=== PATIENT | female | born 2000 | race Caucasian/White ===

== ENCOUNTER 2024-01-07 00:06 | Emergency (ER) | payer MEDICAID, SELFPAY ==
[2024-01-07 00:21] VITALS: BP 129/80; PULSE 94; RESP 20; TEMP 36.5; O2SAT 98; BMI 41.0
--- NOTE | 2024-01-07 00:24 | ED_ITS ---
HPI - General Adult General Date Seen: 01/07/24 Chief complaint: Abdominal Pain Stated complaint: Abdominal pain Time Seen by Provider: 01/07/24 00:06 History of Present Illness HPI narrative: This is a 23-year-old female with a history of lactose intolerance, ADHD, depression, anemia, prior , metabolic syndrome, section elevated BMI According to records through [facility], she was seen on November 20 by her primary care provider after the patient noticed a lump under her section scar. It looks like her doctor ordered an ultrasound. EXAM: US ABDOMEN LIMITED SOFT TISSUE COMPARISON: CT abdomen and pelvis 06/06/2023. FINDINGS: Targeted grayscale and color Doppler evaluation of the area of?interest involving the midline low abdomen at site of section?scar. Adjacent to the section scar, there is nonorganized?subcutaneous fluid overall measuring approximately 1 x 7 x 6 mm. No surrounding hyperemia. No evidence of?abscess at this time. IMPRESSION: At the area of concern, adjacent to the section scar, there is a?collection of nonorganized subcutaneous fluid, not amenable to drainage at?this time. No evidence of abscess or surrounding hyperemia. Labs from 02/02/2023 showed normal kidney function, glucose 117. WBC 8.2, hemoglobin 9.2, platelet count 386. Patient reports that she has been generally healthy for the past month or so. Beginning Tuesday evening or Tuesday evening she started having some GI symptoms. She started having a ?gut ache? with discomfort mostly in her epigastrium but also throughout her intestines and more on the right than on the left. It has been present continuously since onset. It gets worse when she eats. It makes her nauseous but she has not been vomiting. She has had normal brown bowel movements. For the past week or 2 she has had occasional soft stools but not really liquidy diarrhea. No dysuria, urgency, or frequency but she notes that her stomach hurts more when she strains to urinate or strains to pass a BM. No fever or chills. Her 1-year-old child was sick couple of days ago with a fever but did not have vomiting or diarrhea. He is better now Her last menstrual cycle started December 21. 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 She does not think she is but has not done a test. Related Data Previous Rx's ?Medication ?Instructions ?Recorded omeprazole 40 mg capsule,delayed 40 mg PO DAILY #30 caps 01/07/24 release ondansetron HCl 4 mg tablet 4 mg PO Q8H PRN nausea and 01/07/24 vomiting 4 days #10 tabs Allergies Allergy/AdvReac Type Severity Reaction Status Date / Time No Known Drug Allergies Allergy Verified 01/07/24 00:21 [facility] Social History Smoking Status: Never smoker Non-prescribed substance use: denies use Exam Narrative: Exam Narrative: Constitutional: Appears well-developed and well-nourished. Alert. Conversant. Non toxic. Fiance at her bedside. He is playing a game on his phone. HENT: Head: Atraumatic. Nose: Nose normal. Mouth/Throat: Oral mucosa is clear and moist. no trismus. Pharynx normal. Tonsi ls symmetric. No tonsillar enlargement, erythema, or exudate. Eyes: Conjunctivae normal. EOM normal. Pupils equal, round, and reactive to light. No scleral icterus. Neck: Normal range of motion. Neck supple. No tracheal deviation present. Cardiovascular: Normal rate, regular rhythm. No gallop. No friction rub. No murmur heard. Symmetric radial artery pulses Pulmonary/Chest: Effort normal. No stridor. No respiratory distress. No wheezes. No rales. No rhonchi . No tenderness. Abdominal: Soft. Bowel sounds normal. No distension. No mass. Epigastric, left upper quadrant, left lower quadrant and right lower quadrant and suprapubic tenderness. Not really tender in the right upper quadrant. No Palacios sign. No rebound. No guarding. No CVA tenderness. Musculoskeletal: RUE: Normal range of motion. No tenderness. No deformity LUE: Normal range of motion. No tenderness. No deformity RLE: Normal range of motion. No edema. No tenderness. No deformity LLE: Normal range of motion. No edema. No tenderness. No deformity Neurological: Alert and oriented to person, place, and time. Normal strength. CN II-VII intact. No sensory deficit. GCS eye subscore is 4. GCS verbal subscore is 5. GCS motor subscore is 6. Normal coordination Skin: Skin is warm and dry. No rash noted. No pallor. Normal capillary refill. Psychiatric: Normal mood. Normal affect. Const: Vital Signs, click to edit/add: Vital Signs - 24 hr 01/07/24 00:21 Temperature 97.7 F Pulse Rate [Pulse Oximeter] 94 Respiratory Rate 20 Blood Pressure [Ri ght Upper Arm] 129/80 Pulse Oximetry 98 Oxygen Delivery Me thod Room Air Course Course ED Course: Recheck-nausea improved. Pain improved down to a 4/10 which is very tolerable for her. She feels comfortable going home with her fiance. Vital Signs Vital signs: Initial Vital Signs Temperature 97.7 F 01/07/24 00:21 Temperature Source Temporal Artery Scan 01/07/24 00:21 Pulse Rate 94 01/07/24 00:21 Pulse Rhythm Regular 01/07/24 00:21 Pulse Strength 3+ Normal 01/07/24 00:21 Respiratory Rate 20 01/07/24 00:21 Blood Pressure 129/80 01/07/24 00:21 Blood Pressure Mean 96 01/07/24 00:21 Pulse Oximetry 98 01/07/24 00:21 Oxygen Delivery Method Room Air 01/07/24 00:21 Vital Signs Temperature 97.7 F 01/07/24 00:21 Pulse Rate 94 01/07/24 00:21 Respiratory Rate 20 01/07/24 00:21 Blood Pressure 129/80 01/07/24 00:21 Pulse Oximetry 98 01/07/24 00:21 Oxygen Delivery Method Room Air 01/07/24 00:21 Temperature 97.7 F 01/07/24 00:21 Pulse Rate 94 01/07/24 00:21 Respiratory Rate 20 01/07/24 00:21 Blood Pressure 129/80 01/07/24 00:21 Pulse Oximetry 98 01/07/24 00:21 Oxygen Delivery Method Room Air 01/07/24 00:21 Medications Administered Medications: Discontinued Medications Generic Name Dose Route Start Last Admin Trade Name Freq PRN Reason Stop Dose Admin Ketorolac Tromethamine 15 mg 01/07/24 00:53 01/07/24 01:18 Ketorolac 15 Mg/Ml Inj IVP 01/07/24 00:54 15 mg ONCE ONE Administration Lidocaine/Aluminum/Magnesium/Simeth 30 ml 01/07/24 00:53 01/07/24 01:18 Gi Cocktail (Visc Lido/Antacid) 30 Ml PO 01/07/24 00:54 30 ml ONCE ONE Administration Ondansetron HCl 4 mg 01/07/24 00:53 01/07/24 01:18 Ondansetron 2 Mg/Ml Inj IVP 01/07/24 00:54 4 mg ONCE ONE Administration Medical Decision Making MDM Narrative Medical decision making narrative: Presented to the Emergency Department with nausea and abdominal pain ongoing for the past 4 days. Pain is predominantly epigastric but does also more generalized in her abdomen. She had reported that was more on the right than on the left but on exam she was more tender on the left than on the right. The differential diagnosis of abdominal pain includes: Appendicitis, Bowel Obstruction, Ulcer, Ischemia, Cholecystitis, Diverticulitis, Pancreatitis, UTI, kidney stone, Enteritis/Colitis, amongst many other etiologies. Laboratory testing does not reveal a cause for the patient's pain. CT imaging shows no definitive cause for her pain. Pain is predominantly epigastric and she is describing a lot of ?reflux along with her symptoms. She was improved after GI cocktail. I wonder if this might be gastritis or peptic ulcer disease. She is not having any black or bloody stools. Although she is anemic hemoglobin is stable. Blood pressure and pulse are normal. No signs of active GI bleeding requiring hospitalization. In the absence of any a immediate medical or surgical cause of pain requiring hospitalization at that she is safe for discharge home, especially since symptoms are much improved after meds given here in the ER. Will start her empirically on PPI. Recommend close outpatient follow-up primary consider endoscopy. She will return to the ER if she has uncontrolled symptoms or ongoing symptoms this weekend. Or if she has any worsening she will return to the ER right away The patient was advised that if symptoms do not completely resolve within another 24-28 hours re-evaluation with primary care or return to the ED is indicated. Incidentally CT scan shows possible mild splenomegaly, however she is not really tender left upper quadrant. No recent fever or sore throat or other illnesses to suggest mono. Of note she does have chronic anemia with a hemoglobin of around 5. Unclear the splenomegaly could be related to that. She is not showing signs of hemolysis on her CBC and hemoglobin is stable compared to last February. Imaging is noted to be normal. The exact etiology of the abdominal pain is not clear at this time. No life threatening cause or need for emergent surgery or hospital admission is detected today. Questions answered the patient and her fiance. Lab Data Labs: Lab Results 01/07/24 01/07/24 Range/Units 01:05 01:19 WBC 10.25 (4.50-11.00) K/uL RBC 4.54 (4.00-5.20) m/uL Hgb 9.5 L (12.0-16.0) gm/dL Hct 31.5 L (33.0-51.0) % MCV 69 L (80-100) fL MCH 21 L (26-34) pg MCHC 30 L (32-36) gm/dL RDW Coeff of Halley 16.3 H (11.5-15.5) % Plt Count 435 (140-440) K/uL Neut % (Auto) 68.8 (42.0-72.0) % Lymph % (Auto) 25.2 (20-44) % [place] % (Auto) 4.1 (0.0-11.0) % Eos % (Auto) 1.4 (0.0-7.0) % Baso % (Auto) 0.1 (0.0-3.0) % Neut # (Auto) 7.06 H (1.7-7.0) K/uL Lymph # (Auto) 2.58 (0.90-2.90) K/uL [place] # (Auto) 0.40 (0.00-0.90) K/UL Eos # (Auto) 0.14 (0.00-0.50) K/uL Baso # (Auto) 0.01 (0.00-0.30) K/uL Abs Immat Gran (auto) 0.04 (0.00-0.30) K/uL Imm/Tot Granulo (auto) 0.4 % Sodium 139 (135-149) mmol/L Potassium 3.4 L (3.6-5.1) mmol/L Chloride 105 (96-114) mmol/L Carbon Dioxide 24 (20-32) mmol/L Anion Gap 10 (7-15) mEq/L BUN 7 (5-24) mg/dL Creatinine 0.6 (0.5-1.5) mg/dL Estimated Creat Clear 122.69 Estimated GFR 131 ml/min Glucose 122 H (60-115) mg/dL Calcium 8.8 (8.4-10.6) mg/dL Total Bilirubin 0.4 (0.1-1.5) mg/dL AST 20 (12-35) U/L ALT 18 (4-35) U/L Alkaline Phosphatase 73 (40-150) U/L Total Protein 7.1 (6.0-8.3) g/dL Albumin 4.3 (3.3-5.0) g/dL Lipase 59 (23-300) U/L Urine Color Yellow (Yellow) Urine Appearance Cloudy A (Clear) Urine pH 7.0 (5.0-8.5) Ur Specific S [place] 1.025 (1.000-1.030) Urine Protein Negative (Negative) Urine Glucose (UA) Negative (Negative) Urine Ketones Negative (Negative) Urine Blood Negative (Negative) Urine Nitrite Negative (Negative) Urine Bilirubin Negative (Negative) Urine Urobilinogen 1.0 (0.2-1.0) Ur Leukocyte Esterase Negative (Negative) Urine RBC 0-2 (0-2) Urine WBC 2-5 (0-5) Ur Squamous Epith Cells Few (None-Few) Amorphous Sediment Few A (None) Urine Bacteria Few A (None) Urine HCG, Qual Negative (Negative) Imaging Data CT scan - abdomen: Attestation: I have reviewed the pertinent imaging results. Radiologist's impression: Impression: Mild splenomegaly, otherwise unremarkable examination with no abnormal findings appreciated to account for patient`s reported symptoms. Discharge Plan Discharge Clinical Impression: Abdominal pain, Nausea, Splenomegaly Patient Disposition: Home, Self-Care Condition: Stable Instructions: Acute Nausea and Vomiting (DC), Abdominal Pain (ED) Additional Instructions: As we discussed, your workup does not show a definitive cause for your abdominal pain and nausea. Monitor your symptoms carefully and if you have any worsening symptoms or uncontrolled pain or nausea, come back to the ER immediately to be rechecked. I suspect that it is possible your pain and nausea are triggered by problems with stomach acid. Please start on the stomach acid medicine (Prilosec) once every day. Recheck with your regular doctor on Tuesday, even if you are getting better. The CT scans tonight shows that your spleen is mildly enlarged. I do not think this is related to your pain. However he needs to recheck with your regular doctor and have them recheck your spleen within 1-2 weeks. Remember if you get worse or had of uncontrolled symptoms, come back to the ER right away. Prescriptions: New ondansetron HCl 4 mg tablet 4 mg PO Q8H PRN (Reason: nausea and vomiting) 4 Days Qty: 10 0RF omeprazole 40 mg capsule,delayed release(DR/EC) 40 mg PO DAILY Qty: 30 2RF Follow Up/Referrals: Provider,Not a Local [Primary Care Provider] - Stand Alone Forms: [employer] Info Instructions
--- NOTE | 2024-01-07 00:53 | CRLHL7_ITS ---
For Patients: As a result of the Century Cures Act, medical imaging exams and procedure reports are released immediately into your electronic medical record. You may view this report before your referring provider. If you have questions, please contact your health care provider. Indication: Epigastric abdominal pain and nausea Technique: Noncontrast CT through the abdomen and pelvis with multiplanar reformats. Comparison: None Findings: Lower chest: No acute abnormality appreciated. Hepatobiliary: No significant parenchymal abnormality is appreciated. Spleen: Mild splenomegaly. Pancreas: No acute abnormality appreciated. Adrenal glands: No acute abnormality appreciated. Kidneys: No significant parenchymal abnormality appreciated. No visualized calculi. No hydronephrosis. Bowel: No obstruction. No focal perienteric or pericolonic stranding is appreciated. The appendix is visualized and appears unremarkable. Vascular: Poorly evaluated on this noncontrast examination. Lymph nodes: No gross lymphadenopathy. Peritoneum: No free air. No free fluid. : No acute abnormality appreciated. Soft tissues: No acute abnormality appreciated. Bones: No acute fracture. No lytic or blastic lesion. Impression: Mild splenomegaly, otherwise unremarkable examination with no abnormal findings appreciated to account for patient`s reported symptoms. Please note that all CT scans at this facility use dose modulation, iterative reconstruction, and/or weight-based dosing when appropriate to reduce radiation dose to as low as reasonably achievable. Dictated by Oskar Obrien MD @ 01/07/2024 2:21:15 AM (Electronically Signed)
[2024-01-07] MEDS: ONDANSETRON 2 MG/ML inj 4 MG IVP (01:18)
[2024-01-07] MEDS: KETOROLAC 15 MG/ML inj IVP (01:18)
[2024-01-07] MEDS: GI COCKTAIL (VISC LIDO/ANTACID) 30 ML PO (01:18)
[2024-01-07 01:23] LABS: Basophils Absolute Auto 0.01 K/uL (0.00-0.30); Basophils Percent Auto 0.1 % (0.0-3.0); Eosinophils Absolute Auto 0.14 K/uL (0.00-0.50); Eosinophils Percent Auto 1.4 % (0.0-7.0); Hematocrit 31.5 % (33.0-51.0); Hemoglobin* 9.5 gm/dL (12.0-16.0); Immature Granulocytes Abs Auto 0.04 K/uL (0.00-0.30); Immature Granulocytes Pct Auto 0.4 %; Lymphocytes Absolute Auto 2.58 K/uL (0.90-2.90); Lymphocytes Percent Auto 25.2 % (20-44); Mean Corpuscular HGB Conc 30 gm/dL (32-36); Mean Corpuscular Hemoglobin 21 pg (26-34); Mean Corpuscular Volume 69 fL (80-100); Monocytes Percent Auto 4.1 % (0.0-11.0); Neutrophils Absolute Auto 7.06 K/uL (1.7-7.0); Neutrophils Percent Auto 68.8 % (42.0-72.0); Platelet Count* 435 K/uL (140-440); RDW Coefficient of Variation % 16.3 % (11.5-15.5); Red Blood Count 4.54 m/uL (4.00-5.20); White Blood Count* 10.25 K/uL (4.50-11.00)
[2024-01-07 01:24] LABS: Slide Review Reflex No
[2024-01-07 01:33] LABS: Appearance Urine Cloudy (Clear); Bilirubin Urine Negative (Negative); Blood Urine Negative (Negative); Color Urine Yellow (Yellow); Glucose Urine Negative (Negative); Ketones Urine Negative (Negative); Leukocyte Esterase Urine Negative (Negative); Nitrite Urine Negative (Negative); Protein Urine Negative (Negative); Specific Gravity Urine 1.025 (1.000-1.030)
[2024-01-07 01:37] LABS: Albumin* 4.3 g/dL (3.3-5.0); Chloride* 105 mmol/L (96-114); Potassium* 3.4 mmol/L (3.6-5.1); Sodium* 139 mmol/L (135-149)
[2024-01-07 01:39] LABS: Bilirubin Total* 0.4 mg/dL (0.1-1.5); Creatinine* 0.6 mg/dL (0.5-1.5); Est. Creatinine Clearance* 122.69; Estimated Glomerular Filt Rate 131 ml/min
[2024-01-07 01:40] LABS: Alanine Aminotransferase* 18 U/L (4-35); Alkaline Phosphatase* 73 U/L (40-150); Anion Gap 10 mEq/L (7-15); Aspartate Amino Transferase* 20 U/L (12-35); Blood Urea Nitrogen* 7 mg/dL (5-24); Carbon Dioxide* 24 mmol/L (20-32); Glucose* 122 mg/dL (60-115); Lipase* 59 U/L (23-300); Total Protein* 7.1 g/dL (6.0-8.3)
[2024-01-07 01:41] LABS: Calcium* 8.8 mg/dL (8.4-10.6)
[2024-01-07 01:48] LABS: Amorphous Sediment Urine Few; Bacteria Urine Few; RBC Urine 0-2 (0-2); Squamous Epithelial Cell Urine Few (None-Few)
[2024-01-07 01:54] LABS: Ur HCG Qualitative* Negative (Negative)
== END 2024-01-07 03:22 | disposition home or self-care (01) ==
PROVIDERS: Emergency Provider Emergency Medicine
DX: R10.13 Epigastric pain (principal); R16.1 Splenomegaly, not elsewhere classified
CPT/HCPCS: 36415; 74176; 80053; 81001; 81025; 83690; 85025; 87086; 96374; 96375; 99283; 99284; A9270; J1885; J2405